=== PATIENT | female | born 1995 | race Caucasian/White ===

== ENCOUNTER 2021-04-08 12:22 | Outpatient (REF) | payer MEDICAID, SELFPAY ==
--- NOTE | ~2021-04-08 | US_ITS ---
EXAMINATION: US DIAGNOSTIC ULTRASOUND BREAST, LEFT CLINICAL INFORMATION: 25-year-old with pea-sized palpable area upper outer left breast for approximately 2 weeks. No prior breast imaging. No family history breast cancer. COMPARISON: None. TECHNIQUE: Ultrasound left breast is targeted to the area of clinical concern upper outer left breast. Patient is able to point to the area of concern at time of imaging. Grayscale imaging and color Doppler are performed without and with harmonics. FINDINGS: There is no focal suspicious finding. There is no cystic or solid mass, architectural abnormality, duct ectasia, or edema in the soft tissue planes. Results are discussed with the patient at time of visit. Patient should be managed based on the clinical impression. If clinically indicated, further evaluation may be considered with surgical consult. Decision to proceed with biopsy should be based on clinical grounds and degree of clinical concern. US/US breast LT limited IMPRESSION: Normal study. ASSESSMENT: BI-RADS 1: Negative RECOMMENDATION: Patient should be managed based on the clinical impression. If clinically indicated, further evaluation may be considered with surgical consult. Decision to proceed with biopsy should be based on clinical grounds and degree of clinical concern.
== END 2021-04-08 12:23 | disposition home or self-care (01) ==
LOC: HO.MAMMO 12:22
PROVIDERS: PCP Registered Nurse; Visit Provider Registered Nurse
DX: N63.25 Unspecified lump in the left breast, overlapping quadrants (principal)
CPT/HCPCS: 76642

== ENCOUNTER 2021-06-13 15:13 | Emergency (ER) | payer OTHER, SELFPAY ==
--- NOTE | ~2021-06-13 | XR_ITS ---
EXAMINATION: XR HAND, LEFT CLINICAL INFORMATION: Thumb injury COMPARISON: May 05, 2009 TECHNIQUE: PA, lateral, and oblique views of the left hand. FINDINGS: The bones and soft tissues are normal. No fracture. Alignment is anatomic. Joint spaces are maintained. No erosions or soft tissue calcifications. XR/XR hand LT min 3V IMPRESSION: Normal left hand.
[2021-06-13 15:26] VITALS: BP 131/77; PULSE 92; RESP 18; TEMP 36.1; O2SAT 99; BMI 24.3
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
== END 2021-06-13 16:33 | disposition home or self-care (01) ==
PROVIDERS: Emergency Provider Emergency Medicine; PCP Registered Nurse
DX: S63.602A Unspecified sprain of left thumb, initial encounter (principal); Y04.8XXA Assault by other bodily force, initial encounter; Y93.F9 Activity, other caregiving; Y92.230 Patient room in hospital as the place of occurrence of the external cause; Y99.0 Civilian activity done for income or pay
CPT/HCPCS: 29130; 73130; 99283

== ENCOUNTER → 2021-06-16 12:22 | Outpatient (BNVA) | payer OTHER, SELFPAY | PROVIDERS: PCP Registered Nurse; Visit Provider Physician Assistant | DX: S53.439A Radial collateral ligament sprain of unspecified elbow, initial encounter (principal) | CPT/HCPCS: 99202 ==

== ENCOUNTER → 2021-06-18 07:38 | Outpatient (BNVA) | payer OTHER, SELFPAY | PROVIDERS: PCP Registered Nurse; Visit Provider Physician Assistant Medical | DX: Z13.89 Encounter for screening for other disorder (principal) | CPT/HCPCS: 99202 ==

== ENCOUNTER → 2021-07-23 09:56 | Outpatient (BNVA) | payer OTHER, SELFPAY | PROVIDERS: PCP Registered Nurse; Visit Provider Physician Assistant Medical | DX: Z13.89 Encounter for screening for other disorder (principal) | CPT/HCPCS: 99213 ==

== ENCOUNTER → 2021-08-11 11:18 | Outpatient (BNVA) | payer OTHER, SELFPAY | PROVIDERS: PCP Registered Nurse; Visit Provider Physician Assistant | DX: M65.4 Radial styloid tenosynovitis [de Quervain] (principal) | CPT/HCPCS: 99212 ==

== ENCOUNTER 2022-01-31 08:35 | Emergency (ER) | payer MEDICAID, SELFPAY ==
--- NOTE | ~2022-01-31 | CT_ITS ---
EXAMINATION: CT HEAD WITHOUT CONTRAST CLINICAL INFORMATION: Left temporal head injury. Dilated left pupil COMPARISON: None TECHNIQUE: Contiguous axial imaging was performed from the skull base to vertex without intravenous administration of contrast. This CT examination was performed using dose optimization techniques as appropriate, variously including the following: *Automated exposure control *Adjustment of mA and/or kV according to patient size (this includes techniques or standardized protocols for targeted exams where dose is matched to indication/reason for exam; i.e. extremities or head) *Use of iterative reconstruction technique DLP: 593 mGy-cm FINDINGS: There is no evidence of acute intracranial hemorrhage or territorial infarction. No abnormal mass effect or midline shift is seen. Up to white matter differentiation is well preserved. No extra-axial fluid collections are identified. The ventricles are normal in size. There is no abnormal attenuation within the brain parenchyma. The osseous structures and soft tissues are normal. The mastoid air cells and visualized portions of the paranasal sinuses are well aerated. CT/CT head/brain wo con IMPRESSION: No acute intracranial process seen.
[2022-01-31 08:43] VITALS: BP 141/78; PULSE 101; RESP 18; TEMP 36.1; O2SAT 100; BMI 24.3
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
== END 2022-01-31 10:29 | disposition home or self-care (01) ==
PROVIDERS: Emergency Provider Emergency Medicine Emergency Medical Services; PCP Registered Nurse
DX: H57.04 Mydriasis (principal); Z79.899 Other long term (current) drug therapy
CPT/HCPCS: 70450; 99283

== ENCOUNTER 2022-04-05 19:50 | Emergency (ER) | payer OTHER, SELFPAY ==
--- NOTE | ~2022-04-05 | XR_ITS ---
EXAMINATION: XR FINGER, LEFT CLINICAL INFORMATION: Pain on range of motion of the thumb COMPARISON: None TECHNIQUE: Two views of the left thumb. PA view of the hand. FINDINGS: The bones and soft tissues are normal. No fracture. Alignment is anatomic. Joint spaces are maintained. XR/XR finger LT min 2V IMPRESSION: Normal finger radiographs.
[2022-04-05 19:52] VITALS: BP 134/74; PULSE 77; RESP 18; TEMP 37.2; O2SAT 100; BMI 24.4
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
== END 2022-04-05 21:18 | disposition home or self-care (01) ==
PROVIDERS: Emergency Provider Internal Medicine; PCP Registered Nurse
DX: S63.682A Other sprain of left thumb, initial encounter (principal); Y04.2XXA Assault by strike against or bumped into by another person, initial encounter; Y93.F9 Activity, other caregiving; Y92.230 Patient room in hospital as the place of occurrence of the external cause; Y99.0 Civilian activity done for income or pay
CPT/HCPCS: 73140; 99282; 99283

== ENCOUNTER → 2022-04-07 13:05 | Outpatient (BNVA) | payer OTHER, SELFPAY | PROVIDERS: PCP Registered Nurse; Visit Provider Physician Assistant | DX: Z13.89 Encounter for screening for other disorder (principal) | CPT/HCPCS: 29125; 99204 ==

== ENCOUNTER 2022-04-27 10:56 | Outpatient (REF) | payer OTHER, SELFPAY ==
--- NOTE | ~2022-04-27 | XR_ITS ---
EXAMINATION: XR HAND, LEFT CLINICAL INFORMATION: Pain in left hand COMPARISON: Left hand 06/13/2021 TECHNIQUE: PA, lateral, and oblique views of the left hand. FINDINGS: The bones and soft tissues are normal. No fracture. Alignment is anatomic. Joint spaces are maintained. No erosions or soft tissue calcifications. XR/XR hand LT min 3V IMPRESSION: Normal left hand.
== END 2022-04-27 10:57 | disposition home or self-care (01) ==
LOC: HO.HOSX 10:56
PROVIDERS: Visit Provider Orthopaedic Surgery
DX: S63.642A Sprain of metacarpophalangeal joint of left thumb, initial encounter (principal)
CPT/HCPCS: 73130; 99202

== ENCOUNTER → 2022-06-29 11:23 | Outpatient (BNVA) | payer OTHER, SELFPAY | PROVIDERS: Visit Provider Physician Assistant | DX: Z13.89 Encounter for screening for other disorder (principal) | CPT/HCPCS: 99213 ==

== ENCOUNTER 2022-12-06 13:53 | Outpatient (REF) | payer OTHER, SELFPAY ==
[2022-12-06 15:34] LABS: Appearance Urine Cloudy; Color Urine Dark Yellow; Glucose Urine UA Negative (Negative); Leukocyte Esterase Urine Moderate (2+) (Negative); Nitrite Urine Positive (Negative); PH 6.5 (5.0-9.0); Specific Gravity - Urine >= 1.030 (1.005-1.025); UMIC TRIGGER UACC YES; Urine Blood Large (3+) (Negative); Urine Ketones Trace mg/dL (Negative); Urine Protein 300 (3+) mg/dL (Neg-Trace)
[2022-12-06 15:37] LABS: Bacteria Urine 4+ (None Seen); Hyaline Casts Urine 0-2 /LPF (0-2); RBC Urine >20 /HPF (0-2); UACC Culture Trigger YES; WBC Urine >50 /HPF (0-5)
== END 2022-12-06 13:54 | disposition home or self-care (01) ==
LOC: HO.LAB 13:53
PROVIDERS: PCP Registered Nurse; Visit Provider Registered Nurse
DX: R30.0 Dysuria (principal)
CPT/HCPCS: 81001; 87086; 87088; 87186

== ENCOUNTER 2023-05-12 22:51 | Emergency (ER) | payer SELFPAY ==
[2023-05-12 23:01] VITALS: BP 133/82; PULSE 95; RESP 18; TEMP 37.2; O2SAT 99; BMI 27.9
== END 2023-05-13 00:44 | disposition left against medical advice (07) ==
PROVIDERS: Emergency Provider Emergency Medicine
DX: O26.891 Other specified pregnancy related conditions, first trimester (principal); R50.9 Fever, unspecified; J02.9 Acute pharyngitis, unspecified; Z3A.08 8 weeks gestation of pregnancy
CPT/HCPCS: 99281